=== PATIENT | female | born 1930 | race Caucasian/White ===

== ENCOUNTER → 2016-07-07 | Outpatient (CLI) | payer OTHER ==
[~2016-07-07] MED LIST: ASPI81TA82 PO; CALCTAB5 PO; CHOL1TAB2 PO; FERR325T5 PO; OMEP40CA PO
[2016-07-07 17:03] LABS: BASO % 0.7 %; BASO ABS # 0.06 K/uL (0-0.2); COMPLETE YES; EOS % 1.4 %; HEMATOCRIT 32.6 % (37-47); IG% 0.2 %; LYMPH % 19.1 %; LYMPH ABS # 1.55 K/uL (1.2-3.4); MEAN CELL VOLUME 79.1 fL (80-100); MEAN CORPUSCULAR HEMOGLOBIN 24.3 pg (25-34); MEAN CORPUSCULAR HGB CONC 30.7 g/dl (32-36); MEAN PLATELET VOLUME 9.9 fL (7.4-10.4); MONO % 12.3 %; NEUT % 66.3 %; PLATELET COUNT 369 K/uL (130-400); RED BLOOD COUNT 4.12 M/uL (4.2-5.4); WHITE BLOOD COUNT 8.11 K/uL (4.8-10.8)
[2016-07-07 17:11] LABS: ALT/SGPT 13 U/L (12-78); AST/SGOT 12 U/L (15-37); BLOOD UREA NITROGEN 14 mg/dl (7-18); CALCIUM 8.9 mg/dl (8.5-10.1); CARBON DIOXIDE 27 mmol/L (21-32); CHLORIDE 105 mmol/L (98-107); CREATININE 0.87 mg/dl (0.60-1.20); GLUCOSE 92 mg/dl (70-99); POTASSIUM 3.8 mmol/L (3.5-5.1); SODIUM 140 mmol/L (136-145)
[2016-07-07 17:22] LABS: ALKALINE PHOSPHATASE 124 U/L (45-117)
--- NOTE | 2016-07-14 11:37 | CODING QUERY MEDICAL NECESSITY ---
SUPPORTING DIAGNOSIS NEEDED Dr. Monge, A supporting diagnosis is required for the test/procedure performed on this patient in order for us to be reimbursed by the patient's insurance. Please provide a supporting diagnosis for the following test/procedure listed below next to the test name along with your signature. *If there is no additional diagnosis for this patient that would support the following test/procedure please document that below next to the test/procedure. Test(s)/Procedure(s) that require a supporting diagnosis: * ([id number]) B12 VITAMIN LEVEL DIAGNOSIS: DATE OF SERVICE: 07/07/16 Provider Signature: Date: Thank you Jani Arriaga [facility] Information Management Once completed, please kindly fax back to [phone] For questions please call [phone]
== END | disposition home or self-care (01) ==
LOC: C.LABBC 12:34
PROVIDERS: ATTEND Internal Medicine
DX: E55.9 Vitamin D deficiency, unspecified (principal)

== ENCOUNTER 2016-10-13 09:40 | Emergency (ER) | payer OTHER ==
[~2016-10-13] VITALS: Ht 160 cm; Wt 55.7 kg
[2016-10-13 09:47] VITALS: TEMP 36.8; Ht 160 cm; Wt 55.7 kg
--- NOTE | 2016-10-13 11:28 | DIAGNOSTIC IMAGING REPORT ---
LEFT RIBS UNILATERAL WITH PA CHEST CLINICAL HISTORY: fall, rib pain COMPARISON STUDY: Chest 04/06/2015. FINDINGS: No pneumothorax. No pleural effusions. The heart is normal in size. Mildly tortuous thoracic aorta, unchanged. Bibasilar interstitial thickening which is likely chronic. Question of subtle deformity within the left fourth through sixth lateral ribs. These may represent nondisplaced fractures. IMPRESSION: Possible left lateral fourth through sixth nondisplaced rib fractures. No pneumothorax. Electronically signed by: Gonzalez Bland M.D. 10/13/2016 11:27 AM Dictated Date/Time: 10/13/2016 11:23 AM
--- NOTE | 2016-10-13 12:11 | EMERGENCY ROOM VISIT NOTE ---
History Report prepared by Jaguar: Noemy Solitario Under the Supervision of: Dr. Parminder Gutierrez D.O. First contact with patient: 10:19 Chief Complaint: FALL Stated Complaint: ABD PAIN History of Present Illness The patient is an 85 year old female who presents to the Emergency Room with complaints of a sudden fall that occurred around 0845 this morning. She currently rates her discomfort as a 6/10 in severity. Per nursing staff, the patient had a ground level fall around 0845 this morning. Nursing staff reports that the patient has been complaining of left sided rib pain, but the patient has states that the pain started several days ago. Nursing staff reports that the patient has a history of severe dementia. The history is limited secondary to dementia. Source of History: patient, nursing staff History Limited By: dementia Onset: 0845 this morning Position: other (global) Symptom Intensity: 6/10 Quality: other (fall) Timing: other (sudden) Note: Associated Symptoms: left sided rib pain. Review of Systems The history and ROS are limited secondary to dementia. Past Medical & Surgical Medical Problems: (1) Hyperlipidemia Nec/Nos (2) Hypertension Nos (3) Osteoporosis Nos Family History Diabetes mellitus Social History Smoking Status: Former Smoker Drug Use: none Marital Status: Housing Status: lives alone Occupation Status: retired Current/Historical Medications Scheduled Calcium (Caltrate), 600 MG PO QAM Cholecalciferol (Vitamin D-3), 1,000 PO QAM Ferrous Sulfate (Ferrous Sulfate), 325 MG PO QAM Scheduled PRN Aspirin (Aspirin), 81-162 MG PO DAILY PRN for Pain Omeprazole (Prilosec), 40 MG PO QAM PRN for Indigestion Allergies Coded Allergies: Cephalosporins (Verified Allergy, Mild, UNKNOWN, 10/13/16) Cyclosporine (Verified Allergy, Mild, UNKNOWN, 10/13/16) Quinine Derivatives (Verified Allergy, Mild, UNKNOWN, 10/13/16) Codeine (Verified Allergy, Unknown, RASH, 10/13/16) Penicillins (Verified Allergy, Unknown, 10/13/16) Sulfa Drugs (Verified Allergy, Unknown, 10/13/16) Physical Exam Vital Signs Date Time Temp Pulse Resp B/P Pulse Ox O2 Delivery O2 Flow Rate FiO2 10/13/16 11:27 84 14 161/90 96 4/27/17 09:59 75 10/13/16 09:47 36.8 79 19 153/85 99 Room Air Physical Exam CONSTITUTIONAL/VITAL SIGNS: Reviewed / noted above. GENERAL: Non-toxic in appearance. INTEGUMENTARY: Warm, dry, and [place]. HEAD: Normocephalic. EYES: without scleral icterus or trauma. ENT/OROPHARYNX: clear and moist. LYMPHADENOPATHY/NECK: Is supple without lymphadenopathy or meningismus. CHEST: Mild tenderness to palpation of left lateral-mid thorax, no rashes, or obvious trauma, redness, or swelling. RESPIRATORY: Lungs clear and equal. CARDIOVASCULAR: Regular rate and rhythm. GI/ABDOMEN: Soft and nontender. No organomegaly or pulsatile mass. No rebound or guarding. Normal bowel sounds. EXTREMITIES: Warm and well perfused. BACK: No CVA tenderness. NEUROLOGICAL: Baseline confusion, history of dementia. PSYCHIATRIC: normal affect. MUSCULOSKELETAL: Normally developed with good muscle tone. Medical Decision & Procedures ER Provider Diagnostic Interpretation: X ray results and stated below per my interpretation and radiology interpretation. LEFT RIBS UNILATERAL WITH PA CHEST CLINICAL HISTORY: fall, rib pain COMPARISON STUDY: Chest 04/06/2015. FINDINGS: No pneumothorax. No pleural effusions. The heart is normal in size. Mildly tortuous thoracic aorta, unchanged. Bibasilar interstitial thickening which is likely chronic. Question of subtle deformity within the left fourth through sixth lateral ribs. These may represent nondisplaced fractures. IMPRESSION: Possible left lateral fourth through sixth nondisplaced rib fractures. No pneumothorax. Electronically signed by: Gonzalez Bland M.D. 10/13/2016 11:27 AM Dictated Date/Time: 10/13/2016 11:23 AM ED Course 1020: Previous medical records were reviewed. The patient was evaluated in room B7. A complete history and physical examination was performed. 1206: I reevaluated the patient and she is doing well. I discussed the exam findings with her and her family and I discussed the treatment plan. They verbalized complete understanding and agreement. The patient is ready to go home. Medical Decision Differential includes close head injury, intracranial bleed, facial trauma, cervical spine trauma, chest and thoracic trauma, abdominal and intra-abdominal trauma, spine neurologic trauma, extremity trauma. This is an 85-year-old female who presents to the ED with a chief complaint of left-sided rib pain. The patient fell earlier today. She is somewhat of a poor historian. Her vital signs are normal. Her physical exam reveals some tenderness to the left lateral mid thorax. There is no obvious crepitus. Lungs were clear. X-ray of the left ribs and chest reveal possible fractures 4 through 6. The patient was told the results. She is felt to be stable for discharge. She'll take Tylenol or Motrin. Impression Primary Impression: Fall Additional Impression: Ribs, multiple fractures Scribe Attestation The scribe's documentation has been prepared under my direction and personally reviewed by me in its entirety. I confirm that the note above accurately reflects all work, treatment, procedures, and medical decision making performed by me. Departure Information Dispostion Home / Self-Care Referrals Jose Miguel Monge M.D. (PCP) Forms HOME CARE DOCUMENTATION FORM, IMPORTANT VISIT INFORMATION Patient Instructions My [facility] Additional Instructions You have fractures of 3 left ribs. Take Tylenol or Motrin as needed for pain. Return for shortness of breath, fevers, cough or other concerns. Follow-up with your doctor for recheck next week. Problem Qualifiers
[2016-10-13 12:54] VITALS: BP 178/89; PULSE 61; O2SAT 96
== END 2016-10-13 13:00 | disposition home or self-care (01) ==
LOC: EDBD 09:40 → EDSEX 09:40 → C.EDB 09:46
DX: S22.42XA Multiple fractures of ribs, left side, initial encounter for closed fracture (principal); W19.XXXA Unspecified fall, initial encounter; Y92.129 Unspecified place in nursing home as the place of occurrence of the external cause; F03.90 Unspecified dementia, unspecified severity, without behavioral disturbance, psychotic disturbance, mood disturbance, and anxiety; I10 Essential (primary) hypertension; M81.0 Age-related osteoporosis without current pathological fracture; E78.5 Hyperlipidemia, unspecified; Z87.891 Personal history of nicotine dependence

== ENCOUNTER 2017-05-19 10:46 | Emergency (ER) | payer OTHER ==
[~2017-05-19] VITALS: Ht 152.4 cm; Wt 51.0 kg
[2017-05-19 10:51] VITALS: TEMP 36.7; Ht 152.4 cm; Wt 51.0 kg
--- NOTE | 2017-05-19 13:22 | DIAGNOSTIC IMAGING REPORT ---
ABDOMEN 2VIEW W/PA CHEST RTN CLINICAL HISTORY: eval for obstruction pain COMPARISON STUDY: 04/06/2015 FINDINGS: Fecal impaction. Nonobstructive bowel pattern. Calcifications overlying the right lower quadrant possibly relating to gallstones. No secondary signs for free air. Lungs are considered clear. Baseline emphysematous change. IMPRESSION: Fecal impaction The above report was generated using voice recognition software. It may contain grammatical, syntax or spelling errors. Electronically signed by: Angel Vela M.D. 05/19/2017 1:21 PM Dictated Date/Time: 05/19/2017 1:17 PM
[2017-05-19] MEDS ORDERED: MILK AND MOLASSES ENEMA PR STA (13:23)
[2017-05-19] MEDS ORDERED: [UNRECOGNIZED DRUG - OTHER] PR (14:59)
[2017-05-19 15:11] VITALS: BP 168/88; PULSE 65; O2SAT 100
--- NOTE | 2017-05-19 18:48 | EMERGENCY ROOM VISIT NOTE ---
History Report prepared by Jaguar: Rene Leija Under the Supervision of: Dr. Mateus Pagan M.D. First contact with patient: 12:26 Chief Complaint: CONSTIPATION Stated Complaint: CONSTIPATION, ABD PAIN Nursing Triage Summary: pt to ED with Son with c/o constipation and back pain for over a wk History of Present Illness The patient is a 86 year old female who presents to the Emergency Room with complaints of persistent constipation for the past four days. The patient denies any abdominal pain and back pain. Per the patient's son, Serafin, the patient has a history of dementia, and his only concern for her is that she has not had a bowel movement in 4 days. He does not have any other concerns for her other than that at this time. The history is limited secondary to dementia. Source of History: patient, family History Limited By: dementia Onset: 4 days ago Position: other (global) Quality: other (constipation) Timing: other (persistent) Associated Symptoms: No abdominal pain, No back pain Review of Systems Limited due to dementia. Past Medical & Surgical Medical Problems: (1) Hyperlipidemia Nec/Nos (2) Hypertension Nos (3) Osteoporosis Nos Family History Diabetes mellitus Social History Smoking Status: Never Smoker Drug Use: none Marital Status: Housing Status: lives alone Occupation Status: retired Current/Historical Medications Scheduled PRN Glycerin (Sani-Supp Adult), 1 SUPP [place] UD PRN for Constipation Allergies Coded Allergies: Cephalosporins (Verified Allergy, Mild, UNKNOWN, 05/19/17) Cyclosporine (Verified Allergy, Mild, UNKNOWN, 05/19/17) Quinine Derivatives (Verified Allergy, Mild, UNKNOWN, 05/19/17) Codeine (Verified Allergy, Unknown, RASH, 05/19/17) Penicillins (Verified Allergy, Unknown, 05/19/17) Sulfa Drugs (Verified Allergy, Unknown, 05/19/17) Physical Exam Vital Signs Date Time Temp Pulse Resp B/P (MAP) Pulse Ox O2 Delivery O2 Flow Rate FiO2 05/19/17 15:11 65 18 168/88 100 05/19/17 10:51 36.7 97 16 128/77 97 Room Air Physical Exam Constitutional: Vital signs reviewed. Eyes: Pupils are equal round reactive to light. Conjunctiva are noninjected. ENT: Pharynx is clear without erythema or exudate. Mucous membranes are moist. Neck supple without meningeal signs. Respiratory: Clear to auscultation bilaterally. Breath sounds are equal bilaterally. Cardiovascular: Regular rate and rhythm. No rubs or gallops. GI: Soft, nondistended and nontender. Bowel sounds are present. Musculoskeletal: No CVA tenderness. No midline tenderness to the thoracic or lumbosacral spine. No peripheral edema. No lower extremity tenderness. Integumentary: No cyanosis. Neurological: The patient is awake and alert. Pleasant. Psychiatric: Normal affect. Medical Decision & Procedures ER Provider Diagnostic Interpretation: Radiology results as stated below per my review and the radiologist's interpretation: ABDOMEN 2VIEW W/PA CHEST RTN CLINICAL HISTORY: eval for obstruction pain COMPARISON STUDY: 04/06/2015 FINDINGS: Fecal impaction. Nonobstructive bowel pattern. Calcifications overlying the right lower quadrant possibly relating to gallstones. No secondary signs for free air. Lungs are considered clear. Baseline emphysematous change. IMPRESSION: Fecal impaction The above report was generated using voice recognition software. It may contain grammatical, syntax or spelling errors. Electronically signed by: Angel Vela M.D. 05/19/2017 1:21 PM Dictated Date/Time: 05/19/2017 1:17 PM Medications Administered Medications (Trade) Dose Ordered Sig/Jas Route Start Time Stop Time Status Last Admin Dose Admin Miscellaneous Medication (Milk And Molasses Enema) 1 ea NOW STAT [place] 05/19/17 13:23 05/19/17 13:24 DC 05/19/17 14:05 1 EA Procedure Fecal Disimpaction Patient was laying right lateral decubitus with her knees to her chest. Copious lubricant was utilized. A nursing aid was there to comfort her. I removed a moderate amount of stool with one finger. ED Course 1226: The patient was evaluated in room C8. A complete history and physical exam was performed. 1323: Milk and Molasses Enema [place] 1340: I reevaluated the patient, and I let her know her diagnoses and that she will be getting an enema. 1439: The patient was uncooperative with her enemas. 1442: The patient had difficulty cooperating with the enema, and she did not understand the situation and immediately expelled the enema each time. I did have to manually disimpact a moderate amount of stool. She became upset and frantic, so I discontinued any further attempts. I discussed what happened with the son, and he is going to pick her up. Medical Decision This is an 86-year-old female presents with decreased bowel movements. Differential diagnosis includes constipation, obstipation, fecal impaction, bowel obstruction. I did perform a limited focused review of portions of the patient's old chart on the electronic medical record. The patient has had no recent pertinent visits to this hospital. I did evaluate the patient as noted above. I did obtain history from the patient as well as her son over the telephone. The patient is severely demented. She does not know why she is here. She has no complaints at this time. She denies any abdominal pain or back pain. She is not nauseated. I did speak to her son Serafin over the telephone who stated that she has not had a bowel movement at approximate 4-5 days. He did not have any other concerns regarding her health at this time. I did order and personally review the patient 's abdominal and chest x-rays as described above. The patient has a fecal impaction. There is no evidence of bowel obstruction. I did order a milk and molasses enema. The patient had difficulty with this. She did not understand the process and would not hold the enema and for any significant amount of time. I therefore had to perform manual disimpaction as described above. I was able to remove a moderate amount of feces but the patient became highly agitated and so I did have to stop. I did discuss her care with her son over the telephone. I did prescribe glycerin suppositories. He does understand that she may require reassessment should she not have a bowel movement at home. The patient was discharged with her son in good condition. Medication Reconcilliation Current Medication List: was personally reviewed by me Blood Pressure Screening Patient's blood pressure: Normal blood pressure Impression Primary Impression: Fecal impaction Scribe Attestation The scribe's documentation has been prepared under my direct and personally reviewed by me in its entirety. I confirm that the note above accurately reflects all work, treatment, procedures, and medical decision making performed by me. Departure Information Dispostion Home / Self-Care Prescriptions Glycerin (Sani-Supp Adult) 1 Ea Supp 1 SUPP [place] UD Y for Constipation, #30 SUPP Prov: Mateus Pagan M.D. 05/19/17 Referrals Jose Miguel Monge M.D. (PCP) Forms HOME CARE DOCUMENTATION FORM, IMPORTANT VISIT INFORMATION Patient Instructions ED Impaction Fecal Treated, My [facility] Additional Instructions You have been examined and treated today on an emergency basis only. This is not a substitute for, or an effort to provide, complete comprehensive medical care. It is impossible to recognize and treat all injuries or illnesses in a single emergency department visit. It is therefore important that you follow up closely with your physician. Call as soon as possible for an appointment. Return for worsening symptoms or if you develop fever, vomiting, abdominal pain or any other concerning symptoms.
== END 2017-05-19 15:30 | disposition home or self-care (01) ==
LOC: C.EDB 10:47 → C.EDC 15:30
DX: K56.41 Fecal impaction (principal); E78.5 Hyperlipidemia, unspecified; I10 Essential (primary) hypertension; M81.0 Age-related osteoporosis without current pathological fracture; Z83.3 Family history of diabetes mellitus; F03.90 Unspecified dementia, unspecified severity, without behavioral disturbance, psychotic disturbance, mood disturbance, and anxiety

== ENCOUNTER 2017-08-04 06:56 | Emergency (ER) | payer OTHER ==
[~2017-08-04 06:56] MED LIST changes: -ASPI81TA82 PO; -CALCTAB5 PO; -CHOL1TAB2 PO; -FERR325T5 PO; -OMEP40CA PO; +[UNRECOGNIZED DRUG - OTHER] PR
[2017-08-04 07:05] VITALS: TEMP 37.1
--- NOTE | 2017-08-04 07:38 | EMERGENCY ROOM VISIT NOTE ---
History Report prepared by [facility]: Cata Austin Under the Supervision of: Dr. Parminder López M.D. First contact with patient: 07:03 Chief Complaint: FALL Stated Complaint: FALL/LACERATION History of Present Illness The patient is a 86 year old female who presents to the Emergency Room with complaints of persistent trauma secondary to a fall that occurred about one hour prior to arrival. The patient's son states that he heard his mother calling out for help, noting she had fallen out of bed but they were unaware of how long she had been laying on the floor for. The patient had a laceration on her forehead and is unaware if she hit any other body parts during her fall or if she lost consciousness. He notes he had last seen her before they both went to bed. According to the nursing staff, the patient is only oriented to self. HPI limited due to patient having a history of dementia. Source of History: patient History Limited By: dementia Onset: one hour prior to arrival Position: other (global) Quality: other (trauma secondary to fall) Timing: other (persistent) Note: Associated symptoms include: forehead laceration. Review of Systems See HPI for pertinent positives & negatives. A total of 10 systems reviewed and were otherwise negative. Past Medical & Surgical Medical Problems: (1) Hyperlipidemia Nec/Nos (2) Hypertension Nos (3) Osteoporosis Nos Family History Diabetes mellitus Social History Smoking Status: Never Smoker Drug Use: none Marital Status: Housing Status: lives alone Occupation Status: retired Current/Historical Medications Scheduled PRN Glycerin (Sani-Supp Adult), 1 SUPP MO UD PRN for Constipation Allergies Coded Allergies: Cephalosporins (Verified Allergy, Mild, UNKNOWN, 05/19/17) Cyclosporine (Verified Allergy, Mild, UNKNOWN, 05/19/17) Quinine Derivatives (Verified Allergy, Mild, UNKNOWN, 05/19/17) Codeine (Verified Allergy, Unknown, RASH, 05/19/17) Penicillins (Verified Allergy, Unknown, 05/19/17) Sulfa Drugs (Verified Allergy, Unknown, 05/19/17) Physical Exam Vital Signs Date Time Temp Pulse Resp B/P (MAP) Pulse Ox O2 Delivery O2 Flow Rate FiO2 08/04/17 11:35 84 20 160/97 99 08/04/17 09:44 78 170/82 98 Room Air 08/04/17 08:39 83 08/04/17 08:37 99 Room Air 08/04/17 08:37 100 Room Air 08/04/17 08:37 80 17 154/78 100 Room Air 08/04/17 07:05 37.1 96 18 161/93 98 Room Air Physical Exam GENERAL: Patient is a healthy-appearing well-nourished female. HEAD: Quarter size contusion to forehead, superficial laceration. EYES: Ocular movements intact pupils equal and react to light OROPHARYNX mucous membranes are moist no exudates present no erythema or edema present NECK: Supple no nuchal rigidity CHEST: Good equal expansion LUNGS: Clear and equal to auscultation CARDIAC: Normal S1 and S2 ABDOMEN: Soft nontender no guarding BACK: No midline tenderness to back. EXTREMITIES: Good range of motion to all extremities. No pain upon palpation normal muscle strength in all groups no clubbing cyanosis or edema NEURO: Patient is following commands and answering questions appropriately. Alert and oriented x3 Cranial Nerves 2-12 grossly intact Medical Decision & Procedures ER Provider Diagnostic Interpretation: Radiology results as stated below per my review and radiologist interpretation: L RIBS UNILATERAL MIN 2 VIEWS CLINICAL HISTORY: 86 years-old Female presenting with Pt left rib pain . TECHNIQUE: Frontal and oblique views of the left ribs were obtained. COMPARISON: Chest x-ray performed earlier the same day. FINDINGS: Osteopenia, which limits evaluation for nondisplaced fracture. Minimal cortical deformities of the posterior left sixth and seventh ribs, which are somewhat age indeterminate. There is suggestion of periosteal reaction, which suggest chronicity, though the degree of osteopenia makes evaluation difficult. Degenerative changes in the lumbar spine. Atherosclerosis. IMPRESSION: 1. Minimally displaced posterior left sixth and seventh rib fractures. These are age-indeterminate as the degree of osteopenia makes evaluation for periosteal reaction difficult. Correlate with point tenderness. Electronically signed by: Jose Miguel Mixon M.D. 08/04/2017 9:28 AM Dictated Date/Time: 08/04/2017 9:26 AM CHEST ONE VIEW PORTABLE CLINICAL HISTORY: 86 years-old Female presenting with Pt c/o fall. TECHNIQUE: Portable upright AP view of the chest was obtained. COMPARISON: 05/19/2017. FINDINGS: Atherosclerosis of the aortic arch. Cardiac silhouette normal in size. Calcified granuloma noted at the right lung base. No new focal infiltrate. No large effusion or pneumothorax. Osteopenia may be present. Possible chronic posterior left rib fractures at the left sixth and seventh ribs, the appearance may be unchanged from prior. Upper abdomen normal. IMPRESSION: 1. No acute cardiopulmonary disease. 2. Possible posterior rib fractures of the left sixth and seventh ribs, which may be chronic. Dedicated rib radiographs could be considered as clinically indicated. Electronically signed by: Jose Miguel Mixon M.D. 08/04/2017 8:29 AM Dictated Date/Time: 08/04/2017 8:27 AM PELVIS 1 OR 2 VIEW ROUTINE CLINICAL HISTORY: 86 years-old Female presenting with Pt c/o fall. TECHNIQUE: Single frontal view the pelvis was obtained. COMPARISON: None. FINDINGS: Osteopenia may be present. Sacroiliac joints, pubic symphysis, and hip joints congruent. No acute fracture or malalignment. Degenerative changes of the lower lumbar spine noted. Arcuate lines intact. IMPRESSION: No acute osseous injury of the pelvis. Electronically signed by: Jose Miguel Mixon M.D. 08/04/2017 8:27 AM Dictated Date/Time: 08/04/2017 8:25 AM HEAD WITHOUT CONTRAST (CT) CLINICAL HISTORY: 86 years-old Female with Pt c/o fall, hit head. Acute head injury status post fall TECHNIQUE: Multiple axial CT images of the head were obtained without contrast. A dose lowering technique was utilized adhering to the principles of ALARA. CT DOSE: 614.27 mGy.cm COMPARISON: CT head 04/06/2015. FINDINGS: No acute intracranial hemorrhage, midline shift, intracranial mass, hydrocephalus, territorial ischemia or abnormal extra-axial collection. Mild to moderate atrophy with ex vacuo ventriculomegaly. Ill-defined areas of low-attenuation are again seen within the subcortical and periventricular white matter compatible with chronic microvascular ischemic changes. Asymmetric prominence of the left temporal horn lateral ventricle appears unchanged. Vascular calcifications are seen at the level of the skull base. The calvarium is intact. The mastoid air cells, and middle ear cavities are clear. Mild mucosal thickening of the ethmoid air cells and right maxillary sinus. Right-sided ilan bullosa. Small right frontal scalp hematoma, 2.1 x 0.3 cm. IMPRESSION: 1. Chronic changes without acute intracranial abnormality identified. 2. Small right frontal scalp hematoma without calvarial fracture. The above report was generated using voice recognition software. It may contain grammatical, syntax or spelling errors. Electronically signed by: Adalid Mcintyre M.D. 08/04/2017 8:10 AM Dictated Date/Time: 08/04/2017 8:03 AM Laboratory Results 08/04/17 07:45 Red Blood Count 3.89, Mean Corpuscular Volume 68.9, Mean Corpuscular Hemoglobin 20.6, Mean Corpuscular Hemoglobin Concent 29.9, Mean Platelet Volume 8.3, Neutrophils (%) (Auto) 69.0, Lymphocytes (%) (Auto) 16.4, Monocytes (%) (Auto) 12.1, Eosinophils (%) (Auto) 1.5, Basophils (%) (Auto) 0.7, Neutrophils # (Auto ) 4.12, Lymphocytes # (Auto) 0.98, Monocytes # (Auto) 0.72, Eosinophils # (Auto ) 0.09, Basophils # (Auto) 0.04 08/04/17 07:45 Test 08/04/17 07:40 08/04/17 07:45 08/04/17 09:40 Bedside Glucose 92 mg/dl (70-90) White Blood Count 5.97 K/uL (4.8-10.8) Red Blood Count 3.89 M/uL (4.2-5.4) Hemoglobin 8.0 g/dL (12.0-16.0) Hematocrit 26.8 % (37-47) Mean Corpuscular Volume 68.9 fL (80-100) Mean Corpuscular Hemoglobin 20.6 pg (25-34) Mean Corpuscular Hemoglobin Concent 29.9 g/dl (32-36) Platelet Count 335 K/uL (130-400) Mean Platelet Volume 8.3 fL (7.4-10.4) Neutrophils (%) (Auto) 69.0 % Lymphocytes (%) (Auto) 16.4 % Monocytes (%) (Auto) 12.1 % Eosinophils (%) (Auto) 1.5 % Basophils (%) (Auto) 0.7 % Neutrophils # (Auto) 4.12 K/uL (1.4-6.5) Lymphocytes # (Auto) 0.98 K/uL (1.2-3.4) Monocytes # (Auto) 0.72 K/uL (0.11-0.59) Eosinophils # (Auto) 0.09 K/uL (0-0.5) Basophils # (Auto) 0.04 K/uL (0-0.2) RDW Standard Deviation 40.6 fL (36.4-46.3) RDW Coefficient of Variation 16.3 % (11.5-14.5) Immature Granulocyte % (Auto) 0.3 % Immature Granulocyte # (Auto) 0.02 K/uL (0.00-0.02) Hypochromasia PRESENT Microcytosis PRESENT Ovalocytes 1+ Prothrombin Time 10.0 SECONDS (9.0-12.0) Prothromb Time International Ratio 1.0 (0.9-1.1) Anion Gap 8.0 mmol/L (3-11) Estimated GFR () 90.1 Estimated GFR (Non- 77.7 BUN/Creatinine Ratio 16.6 (10-20) Calcium Level 8.7 mg/dl (8.5-10.1) Total Bilirubin 0.4 mg/dl (0.2-1) Direct Bilirubin < 0.1 mg/dl (0-0.2) Aspartate Amino Transf (AST/SGOT) 14 U/L (15-37) Alanine Aminotransferase (ALT/SGPT) 13 U/L (12-78) Alkaline Phosphatase 118 U/L (45-117) Total Creatine Kinase 71 U/L (26-192) Creatine Kinase MB 1.6 ng/ml (0.5-3.6) Creatine Kinase MB Ratio 2.3 (0-3.0) Troponin I < 0.015 ng/ml (0-0.045) Total Protein 7.2 gm/dl (6.4-8.2) Albumin 3.2 gm/dl (3.4-5.0) Thyroid Stimulating Hormone (TSH) 2.360 uIu/ml (0.300-4.500) Urine Color YELLOW Urine Appearance CLEAR (CLEAR) Urine pH 7.5 (4.5-7.5) Urine Specific [place] 1.009 (1.000-1.030) Urine Protein NEG (NEG) Urine Glucose (UA) NEG (NEG) Urine Ketones NEG (NEG) Urine Occult Blood NEG (NEG) Urine Nitrite POS (NEG) Urine Bilirubin NEG (NEG) Urine Urobilinogen NEG (NEG) Urine Leukocyte Esterase TRACE (NEG) Urine WBC (Auto) 1-5 /hpf (0-5) Urine RBC (Auto) 0-4 /hpf (0-4) Urine Hyaline Casts (Auto) 0 /lpf (0-5) Urine Epithelial Cells (Auto) 10-20 /lpf (0-5) Urine Bacteria (Auto) 4+ (NEG) Labs reviewed by ED physician. Procedure Location: right forehead Total length: 1cm Complexity: simple linear Verbal consent was obtained after the risks and benefits were explained, including but not limited to bleeding, scarring, infection, pain, and bone/joint /nerve damage. At this time, the risks of the procedure are less than the risks of NOT performing the procedure. A time out was taken and the correct patient and site identified. The skin was prepped with betadine. Copious irrigation was performed using 5cc of fluid. The skin was re-prepped with betadine and a sterile field set. The wound was explored for foreign bodies and none found. Examination revealed no injury to deep structures such as tendons, bone, or significant blood vessels. Debridement was not performed. The wound edges were approximated using Dermabond. Hemostasis and excellent approximation was achieved. Antibacterial ointment and a sterile dressing applied. Detailed wound care instructions and signs and symptoms of infection reviewed with the patient. No complications and the patient tolerated the procedure well. ECG Per My Interpretation Indication: weakness Rate (beats per minute): 95 Rhythm: normal sinus Findings: other (normal axis, no ST elevations or depressions) Change: Patients electrocardiogram as interpreted by me. ED Course 0722: Past medical records reviewed. The patient was evaluated in room A10. A complete history and physical examination was performed. Laceration repair procedure performed with patient's verbal approval. 1009: I had a long talk with the patient's son , who states that the patient is anemic and has not been taking her medication at home. We discussed test findings and the treatment plan, he verbalized complete understanding and agreement. He feels comfortable taking her home. The patient is ready for discharge. Medical Decision Differential diagnosis: Etiologies such as fracture, dislocation, intra-abdominal, pneumothorax, intrathoracic , intracranial, neurologic, as well as other traumatic pathologies were entertained. This is an 86-year-old female who presents emergency department complaining of fall at home this morning. The patient has dementia and per her son is at her baseline. She has a laceration to her right for head which was closed as above. I will note that the patient is slightly anemic with a hemoglobin of 8.0. For this reason a rectal exam was obtained. She is heme negative. I discussed my findings with the son who notes that the patient as well as to be taking iron but has not taken it in quite some time. As the patient is at her baseline and has been standing up and walking around while in the emergency department I feel that she is well enough to be discharged home however she needs close follow-up with her primary care physician. I also offered home health services or longterm placement to the son however he declined them. He also feels the patient as well as to be taken home. I stressed the need to return if the patient develops weakness or altered mental status. Some was in agreement with the treatment plan. Medication Reconcilliation Current Medication List: was personally reviewed by me Blood Pressure Screening Patient's blood pressure: Elevated blood pressure Blood pressure disposition: Referred to PCP Impression Primary Impression: Fall Additional Impressions: Laceration Head injury Scribe Attestation The scribe's documentation has been prepared under my direction and personally reviewed by me in its entirety. I confirm that the note above accurately reflects all work, treatment, procedures, and medical decision making performed by me. Departure Information Dispostion Home / Self-Care Referrals Jose Miguel Tong M.D. (PCP) Forms HOME CARE DOCUMENTATION FORM, IMPORTANT VISIT INFORMATION Patient Instructions My [facility] Additional Instructions Follow up with Dr Tong's office for anemia Return if patient is weak or bleeding You have been examined and treated today on an emergency basis only. This is not a substitute for, or an effort to provide, complete comprehensive medical care. It is impossible to recognize and treat all injuries or illnesses in a single emergency department visit. It is therefore important that you follow up closely with Dr Tong. Call as soon as possible for an appointment. Thank you for your time and consideration. I look forward to speaking with you again soon. Please don't hesitate to call us if you have any questions. Problem Qualifiers Primary Impression: Fall Encounter type: initial encounter Qualified Codes: W19.XXXA - Unspecified fall, initial encounter Additional Impressions: Head injury Encounter type: initial encounter Qualified Codes: S09.90XA - Unspecified injury of head, initial encounter
[2017-08-04 07:55] LABS: BASO % 0.7 %; BASO ABS # 0.04 K/uL (0-0.2); EOS % 1.5 %; EOS ABS # 0.09 K/uL (0-0.5); HEMATOCRIT 26.8 % (37-47); IG# 0.02 K/uL (0.00-0.02); LYMPH % 16.4 %; LYMPH ABS # 0.98 K/uL (1.2-3.4); MEAN CELL VOLUME 68.9 fL (80-100); MEAN CORPUSCULAR HEMOGLOBIN 20.6 pg (25-34); MEAN CORPUSCULAR HGB CONC 29.9 g/dl (32-36); MEAN PLATELET VOLUME 8.3 fL (7.4-10.4); MONO % 12.1 %; MONO ABS # 0.72 K/uL (0.11-0.59); NEUT ABS # 4.12 K/uL (1.4-6.5); PLATELET COUNT 335 K/uL (130-400); RED CELL DISTRIBUTION WIDTH CV 16.3 % (11.5-14.5); RED CELL DISTRIBUTION WIDTH SD 40.6 fL (36.4-46.3); WHITE BLOOD COUNT 5.97 K/uL (4.8-10.8)
[2017-08-04 08:10] LABS: ALBUMIN 3.2 gm/dl (3.4-5.0); ALT/SGPT 13 U/L (12-78); AST/SGOT 14 U/L (15-37); BLOOD UREA NITROGEN 11 mg/dl (7-18); CALCIUM 8.7 mg/dl (8.5-10.1); CARBON DIOXIDE 27 mmol/L (21-32); CREATININE 0.69 mg/dl (0.60-1.20); GLUCOSE 91 mg/dl (70-99); POTASSIUM 3.3 mmol/L (3.5-5.1); SODIUM 139 mmol/L (136-145)
--- NOTE | 2017-08-04 08:11 | DIAGNOSTIC IMAGING REPORT ---
HEAD WITHOUT CONTRAST (CT) CLINICAL HISTORY: 86 years-old Female with Pt c/o fall, hit head. Acute head injury status post fall TECHNIQUE: Multiple axial CT images of the head were obtained without contrast. A dose lowering technique was utilized adhering to the principles of ALARA. CT DOSE: 614.27 mGy.cm COMPARISON: CT head 04/06/2015. FINDINGS: No acute intracranial hemorrhage, midline shift, intracranial mass, hydrocephalus, territorial ischemia or abnormal extra-axial collection. Mild to moderate atrophy with ex vacuo ventriculomegaly. Ill-defined areas of low-attenuation are again seen within the subcortical and periventricular white matter compatible with chronic microvascular ischemic changes. Asymmetric prominence of the left temporal horn lateral ventricle appears unchanged. Vascular calcifications are seen at the level of the skull base. The calvarium is intact. The mastoid air cells, and middle ear cavities are clear. Mild mucosal thickening of the ethmoid air cells and right maxillary sinus. Right-sided ilan bullosa. Small right frontal scalp hematoma, 2.1 x 0.3 cm. IMPRESSION: 1. Chronic changes without acute intracranial abnormality identified. 2. Small right frontal scalp hematoma without calvarial fracture. The above report was generated using voice recognition software. It may contain grammatical, syntax or spelling errors. Electronically signed by: Adalid Mcintyre M.D. 08/04/2017 8:10 AM Dictated Date/Time: 08/04/2017 8:03 AM
[2017-08-04 08:20] LABS: ALKALINE PHOSPHATASE 118 U/L (45-117); CKMB 1.6 ng/ml (0.5-3.6); TOTAL PROTEIN 7.2 gm/dl (6.4-8.2)
--- NOTE | 2017-08-04 08:28 | DIAGNOSTIC IMAGING REPORT ---
PELVIS 1 OR 2 VIEW ROUTINE CLINICAL HISTORY: 86 years-old Female presenting with Pt c/o fall. TECHNIQUE: Single frontal view the pelvis was obtained. COMPARISON: None. FINDINGS: Osteopenia may be present. Sacroiliac joints, pubic symphysis, and hip joints congruent. No acute fracture or malalignment. Degenerative changes of the lower lumbar spine noted. Arcuate lines intact. IMPRESSION: No acute osseous injury of the pelvis. Electronically signed by: Jose Miguel Mixon M.D. 08/04/2017 8:27 AM Dictated Date/Time: 08/04/2017 8:25 AM
--- NOTE | 2017-08-04 08:30 | DIAGNOSTIC IMAGING REPORT ---
CHEST ONE VIEW PORTABLE CLINICAL HISTORY: 86 years-old Female presenting with Pt c/o fall. TECHNIQUE: Portable upright AP view of the chest was obtained. COMPARISON: 05/19/2017. FINDINGS: Atherosclerosis of the aortic arch. Cardiac silhouette normal in size. Calcified granuloma noted at the right lung base. No new focal infiltrate. No large effusion or pneumothorax. Osteopenia may be present. Possible chronic posterior left rib fractures at the left sixth and seventh ribs, the appearance may be unchanged from prior. Upper abdomen normal. IMPRESSION: 1. No acute cardiopulmonary disease. 2. Possible posterior rib fractures of the left sixth and seventh ribs, which may be chronic. Dedicated rib radiographs could be considered as clinically indicated. Electronically signed by: Jose Miguel Mixon M.D. 08/04/2017 8:29 AM Dictated Date/Time: 08/04/2017 8:27 AM
[2017-08-04 08:37] VITALS: O2SAT 100
--- NOTE | 2017-08-04 09:29 | DIAGNOSTIC IMAGING REPORT ---
L RIBS UNILATERAL MIN 2 VIEWS CLINICAL HISTORY: 86 years-old Female presenting with Pt left rib pain . TECHNIQUE: Frontal and oblique views of the left ribs were obtained. COMPARISON: Chest x-ray performed earlier the same day. FINDINGS: Osteopenia, which limits evaluation for nondisplaced fracture. Minimal cortical deformities of the posterior left sixth and seventh ribs, which are somewhat age indeterminate. There is suggestion of periosteal reaction, which suggest chronicity, though the degree of osteopenia makes evaluation difficult. Degenerative changes in the lumbar spine. Atherosclerosis. IMPRESSION: 1. Minimally displaced posterior left sixth and seventh rib fractures. These are age-indeterminate as the degree of osteopenia makes evaluation for periosteal reaction difficult. Correlate with point tenderness. Electronically signed by: Jose Miguel Mixon M.D. 08/04/2017 9:28 AM Dictated Date/Time: 08/04/2017 9:26 AM
[2017-08-04 11:35] VITALS: BP 160/97; PULSE 84; O2SAT 99
== END 2017-08-04 11:36 | disposition home or self-care (01) ==
LOC: EDBD 06:56 → C.EDA 07:01
DX: S01.81XA Laceration without foreign body of other part of head, initial encounter (principal); S09.90XA Unspecified injury of head, initial encounter; W06.XXXA Fall from bed, initial encounter; Y92.003 Bedroom of unspecified non-institutional (private) residence as the place of occurrence of the external cause; Y93.84 Activity, sleeping; D64.9 Anemia, unspecified; F03.90 Unspecified dementia, unspecified severity, without behavioral disturbance, psychotic disturbance, mood disturbance, and anxiety; E78.5 Hyperlipidemia, unspecified; I10 Essential (primary) hypertension; M81.0 Age-related osteoporosis without current pathological fracture; Z83.3 Family history of diabetes mellitus; Z88.0 Allergy status to penicillin; Z88.8 Allergy status to other drugs, medicaments and biological substances; Z88.3 Allergy status to other anti-infective agents; Z88.5 Allergy status to narcotic agent

== ENCOUNTER → 2017-09-26 | Outpatient (CLI) | payer OTHER ==
--- NOTE | 2017-09-26 14:38 | DIAGNOSTIC IMAGING REPORT ---
L VENOUS DOPP LOWER EXT UNILAT CLINICAL HISTORY: 86 years-old Female presenting with 782.3,R60.0. TECHNIQUE: Real-time grayscale and color and spectral Doppler ultrasound imaging of the veins of the left lower extremity was performed. Compression and augmentation were also utilized. COMPARISON: None. FINDINGS: Left: Common femoral vein: Patent. Greater saphenous vein: Patent. Deep femoral vein: Patent. Femoral vein: Patent. Popliteal vein: Patent. Calf veins: Limited visualization secondary to subcutaneous edema. Other: None. IMPRESSION: No evidence of deep venous thrombosis. Electronically signed by: Jose Miguel Mixon M.D. 09/26/2017 2:37 PM Dictated Date/Time: 09/26/2017 2:36 PM
== END | disposition home or self-care (01) ==
LOC: C.ULTRBC 14:03
PROVIDERS: ATTEND Internal Medicine
DX: R60.0 Localized edema (principal)

== ENCOUNTER 2018-10-07 10:22 | Inpatient (IN) ==
[2018-10-07] MEDS ORDERED: SODIUM CHLORIDE 0.9% 1000ML 1,000 ML IV SCH (10:45)
[2018-10-07] MEDS ORDERED: SODIUM CHLORIDE 0.9% 500 ML IV SCH (10:45)
--- NOTE | 2018-10-07 10:54 | XRay Report ---
XR chest 1V portable HISTORY: weakness COMPARISON: Chest 08/04/2017. FINDINGS: The lungs are clear. Cardiac silhouette is normal in size. No pleural effusions. No pneumot horax. IMPRESSION: No acute process. Electronically signed by: Gonzalez Bland M.D. 10/07/2018 10:53 AM
[2018-10-07 11:31] LABS: Hematocrit (blood only) 21.9 % (37-47); Mean Corpuscular Hgb Conc 27.4 g/dL (32-36); Mean Corpuscular Volume 61.3 fL (80-100); Mean Platelet Volume 8.3 fL (7.4-10.4); Platelet Count 346 K/uL (130-400); RDW Coefficient of Variation 18.7 % (11.5-14.5); RDW Standard Deviation 42.4 fL (36.4-46.3); Red Blood Count 3.57 M/uL (4.2-5.4); White Blood Count 4.64 K/uL (4.8-10.8)
[2018-10-07 11:39] LABS: Alanine Aminotransferase 12 U/L (12-78); Albumin Level 3.3 gm/dl (3.4-5.0); Aspartate Aminotransferase 12 U/L (15-37); BUN Creatinine Ratio 15.9 (10-20); Blood Urea Nitrogen 15 mg/dl (7-18); Calcium 8.7 mg/dl (8.5-10.1); Carbon Dioxide 26 mmol/L (21-32); Chloride 106 mmol/L (98-107); Est GFR (African American) 62.3; Est GFR (Non-African American) 53.8; Glucose 105 mg/dl (70-99); Magnesium 2.4 mg/dl (1.8-2.4); Potassium 4.2 mmol/L (3.5-5.1); Sodium 139 mmol/L (136-145)
[2018-10-07 11:45] LABS: Basophils # (auto) 0.06 K/uL (0-0.2); Basophils % (auto) 1.3 %; Eosinophils # (auto) 0.06 K/uL (0-0.5); Eosinophils % (auto) 1.3 %; Hypochromasia Present; Immature Granulocytes # (auto) 0.01 K/uL (0.00-0.02); Immature Granulocytes % (auto) 0.2 %; Lymphocytes # (auto) 1.46 K/uL (1.2-3.4); Lymphocytes % (auto) 31.5 %; Microcytosis Present; Monocytes # (auto) 0.63 K/uL (0.11-0.59); Monocytes % (auto) 13.6 %; Neutrophils # (auto) 2.42 K/uL (1.4-6.5); Neutrophils % (auto) 52.1 %; Ovalocytes 1+; Poikilocytosis Present
[2018-10-07 11:50] LABS: Albumin Globulin Ratio 0.9 (0.9-2); Alkaline Phosphatase 85 U/L (45-117); Bilirubin,Total 0.3 mg/dl (0.2-1); Globulin 3.7 gm/dl (2.5-4.0); Troponin I < 0.015 ng/ml (0-0.045)
[2018-10-07 12:03] LABS: Reticulocyte % 1.1 % (0.5-2.0); Reticulocytes # 0.04 10^6/uL (0.02-0.10)
--- NOTE | 2018-10-07 12:28 | History & Physical Report ---
Date of Service October 07, 2018 Assessment & Plan (1) Severe anemia: Presyncope 87 yo female with advanced dementia likely due to severe anemia. Patient is admitted with hemoglobin of 6.0 Will obtain iron studies. It appears patient likely has a lower GI bleed. Will consult GI. NPO. On PPI. Transfuse 2 PRBC. Son states patient will be a level 5 Do not resuscitate. Will recheck hemoglobin in AM. (2) Dementia: Patient has advanced dementia. May require a one to one as patient was trying to leave room when I was assessing her.Informed nursing staff. (3) Near syncope: Due to problem one. Will monitor. DVT: SCD was considered, but patient refusing this. Will have patient ambulate with aid. SPENT 65 MINUTES IN MANAGEMENT OF PATIENT. History of Present Illness Chief Complaint: [place] weak and almost passed out in restoration. Primary Care Provider: Baldemar Luo at [place] 87 yo female with no significant medical history except for advanced dementia. Patient is a poor historian and most of the history was obtained by her son via phone. Her son states that the patient is a resident of [facility]. She was her normal self this morning when Jose her son picked her up at [facility]. But at restoration, while she was sitting during the sermon. Her son noticed that her head went down but she was arousable. He had to get a wheelchair to get her to the car. Normally she ambulated with no issues. In the car, she was leaning forward with her head down, but she did not lose consciousness. Patient' son states that he could not provide more history as she is now a resident at [facility]. Called Baldemar, they stated she was her normal self but did have abdominal pain on , but this subsided Monday. As patient toilets herself, they cannot provide any history of her stools. Allergies Allergy/AdvReac Type Severity Reaction Status Date / Time Cephalosporins Allergy Mild UNKNOWN Verified 10/07/18 11:32 cyclosporine Allergy Mild UNKNOWN Verified 10/07/18 11:32 quinine Allergy Mild UNKNOWN Verified 10/07/18 11:32 codeine Allergy Unknown RASH Verified 10/07/18 11:32 Penicillins Allergy Unknown Verified 10/07/18 11:32 Sulfa (Sulfonamide Allergy Unknown Verified 10/07/18 11:32 Antibiotics) Home Medications Home Medications Medication Instructions Recorded Confirmed Type acetaminophen 500 mg PO TID PRN 10/07/18 10/07/18 History Past Med/Surg History Medical History Dementia Hyperlipidemia Hypertension Iron deficiency anemia due to chronic blood loss Osteoarthritis Surgical History History of appendectomy History of cataract surgery History of colonoscopy History of ovarian cystectomy History of tonsillectomy Family History Mother , Age 77 No problems noted. Social History Preferred Language: Haitian Communication Ability: Impaired Communication Ability Comment: advanced dementia Aviation Maintenance Technician Required: Yes Beliefs That Will Affect Care: None Current Living Situation: Snf Current Living Situation Comment: baldemar Last 2 Leftgabriel Other Information That Helps Us Care for You: No Feels Safe at Home: Yes Safety Concerns: Feels Safe At This Time Smoking Status: Never smoker Do You Dip or Chew Tobacco: No Second Hand Exposure: No Tobacco Cessation Education Requested by Patient: No Hx Alcohol Use: No Hx Substance Use: No Review of Systems Review of Systems: Unobtainable due to mental health condition Physical Exam Constitutional: WD/WN, vitals as above well developed and well nourished Eyes: PERRL, conjunctivae normal, anicteric sclerae ENMT: external ear and nose normal, oropharynx normal Neck: trachea midline, no thyromegaly Respiratory: normal respiratory effort, lungs clear to auscultation Cardiovascular: RRR, no murmur, no edema Gastrointestinal (Abdomen): normal bowel sounds, soft, nontender, no hepatosplenomegaly Musculoskeletal: no cyanosis or clubbing, extremities motor strength 5/5 Neurologic: awake Speech / Cognition: + abnormal cognition Psychiatric: Orientation: alert Apperance: appropriately dressed Motor Behavior: no abnormal motor movements Affect: euthymic affect not oriented to time and place. Results & Data Vital Signs (Past 12 Hours) Vital Signs Temp Pulse Pulse Resp BP BP Pulse Ox 10/07/18 11:33 76 17 123/61 100 10/07/18 10:28 36.4 C L 75 20 87/49 L 100
--- NOTE | 2018-10-07 13:42 | Emergency Department Note ---
Entered by Concetta Hernandez acting as a scribe for Jim Webb MD ED Provider Note CHIEF COMPLAINT: Syncope HISTORY OF PRESENT ILLNESS: The patient is an 87 year old female who presents to the Emergency Room with complaints of an episode of syncope starting less than an hour ago. The patients son reports that the patient was sitting in u[place] and began to lose consciousness. He states that the patient was in a sitting position when she lost consciousness and remained in the sitting position. He explains that the patient lives at [facility] and did eat breakfast this morning. He notes that the patient was complaining of abdominal pain when she got to the Emergency Department. He adds that the patient has dementia and is normally confused. The patients son reports that the patient sees Dr. Russo PCP. He states that the patient cannot swallow pills. The patient's son denies that the patient has a headache, fevers, chills, diaphoresis, visual changes, neck pain, chest pain, breathing difficulties, na usea, vomiting, back pain, melena, hematochezia, urinary symptoms, numbness, lymphadenopathy, rash, or other complaints. REVIEW OF SYSTEMS: See HPI for pertinent positives and negatives. A total of ten systems were reviewed and were otherwise negative. PMHx/PSHx: Dementia. SOCIAL HISTORY: Patient lives in a fpc. Former smoker. PHYSICAL EXAM: GENERAL: Awake, alert, pale-appearing, in no distress HENT: Normocephalic, atraumatic. Oropharynx unremarkable. EYES: PERRL. Pale conjunctiva. Sclera non-icteric. NECK: Inspection normal. Non-tender. Supple. No nuchal rigidity. FROM. No masses. RESPIRATORY: Clear to auscultation. No wheezes. No rales. Normal respiratory effort. CARDIAC: Normal rate. Normal rhythm. No murmurs. No rubs. Extremities warm and well perfused. Pulses equal. No JVD. GI: Soft, non-distended. No tenderness to palpation. No rebound or guarding. No masses. RECTAL: Deferred. MUSCULOSKELETAL: Atraumatic. Chest examination reveals no tenderness. The back is symmetrical on inspection without obvious abnormality. There is no CVA tenderness to palpation. No joint edema. LOWER EXTREMITIES: Calves are equal size bilaterally and non-tender. No discoloration. 1+ lower extremity edema. NEURO: Demented sensorium. No sensory or motor deficits noted. SKIN: No rash or jaundice noted. EMERGENCY DEPARTMENT COURSE: 1038: Past medical records reviewed. The patient was evaluated in room B9, and a complete history and physical examination were performed. 1140: I gained consent from the patient for blood in conjunction with the patients son who is in agreement. I typed and crossed the patient for 2 units of blood. I paged the [facility] hospitalist at this time. 1154: I discussed the patient's case with Dr. Barnhart - [facility] Hospitalist at this time. He accepted the patient for further evaluation. MEDICAL DECISION MAKING: Prior records/ancillary studies reviewed. The patient has had progressive anemia over the last 3 years. Nursing notes reviewed and agree them. Additional history obtained from the patient's son. The patient's history was concerning for near syncope. Differential diagnosis: Etiologies such as metabolic, infection, hypo/hyperglycemia, electrolyte abnormalities, cardiac sources, intracerebral event, toxicologic, neurologic, as well as others were entertained. Physical examination: As above. Patient was pale. Initially she was hypotensive per ER treatment provided: IV Lock Packed red blood cell transfusion Saline hydration On reassessment the patient felt better. Diagnostics interpretation by me: ECG: No ischemia The labs revealed significant anemia on CBC with a hemoglobin of 6. The patient's lactate was mildly elevated. Chemistry panel and troponin were unremarkable. Urinalysis pending. Imaging studies: Chest x-ray negative. The patient has a profound anemia. She will need further management in the hospital. The patient was consented with her son present for packed red blood cell transfusion. Consultation: A consultation was placed with the hospitalist. The case was discussed and diagnostics were reviewed. The patient was evaluated in the ER for further treatment. IMPRESSION: Near syncope, Severe anemia. PLAN: Being Evaluated by Hospitalist The scribe's documentation has been prepared under my direction and personally reviewed by me in its entirety. I confirm that the note above accurately reflects all work, treatment, procedures, and medical decision making performed by me. CRITICAL CARE: I have personally spent 30 minutes of critical care time in the direct management of this patient. This includes bedside care, interpretation of diagnostic studies, and testing, discussion with consultants, patient, and family members, and other required patient management activities. This 30 minutes is in excess of all separately billable procedures. Impression & Plan Near syncope, Severe anemia Past Med/Surg History Medical History Dementia Hyperlipidemia Hypertension Iron deficiency anemia due to chronic blood loss Osteoarthritis Surgical History History of appendectomy History of cataract surgery History of colonoscopy History of ovarian cystectomy History of tonsillectomy Social History Preferred Language: Portuguese Smoking Status: Former smoker Results & Data Vital Signs Vital Signs - 24 hr 10/07/18 10:28 10/07/18 11:33 Temperature 36.4 C L Temperature Source Oral Sepsis Recent Fever Within 48 Hours No Sepsis Action Taken by Nursing No Action Required Pulse Rate 75 Pulse Rate [Apical] 76 Pulse Rhythm [Apical] Regular Respiratory Rate 20 17 Respiratory Effort / Characteristics Non-Labored Non-Labored Spontaneous Respiratory Depth Normal Normal Respiratory Pattern Regular Blood Pressure 87/49 L Blood Pressure [Left Arm] 123/61 Blood Pressure Mean 61 Blood Pressure Mean [Left Arm] 81 Pulse Oximetry 100 100 Oxygen Delivery Method Room Air Room Air Home Medications Current Medication List: was personally reviewed by me Laboratory Data Attestation: I reviewed the patient's lab results. Result diagrams: 10/07/18 10:49 10/07/18 10:49 Lab Results 10/07/18 10/07/18 10/07/18 Range/Units 10:49 10:49 10:49 WBC 4.64 L (4.8-10.8) K/uL RBC 3.57 L (4.2-5.4) M/uL Hgb 6.0 L* (12.0-16.0) g/dL Hct 21.9 L (37-47) % MCV 61.3 L (80-100) fL MCH 16.8 L (25-34) pg MCHC 27.4 L (32-36) g/dL RDW Std Deviation 42.4 (36.4-46.3) fL RDW Coeff of Raul 18.7 H (11.5-14.5) % Plt Count 346 (130-400) K/uL MPV 8.3 (7.4-10.4) fL Immature Gran % (Auto) 0.2 % Neut % (Auto) 52.1 % Lymph % (Auto) 31.5 % Broome % (Auto) 13.6 % Eos % (Auto) 1.3 % Baso % (Auto) 1.3 % Reticulocyte % (Auto) 1.1 (0.5-2.0) % Immature Gran # (Auto) 0.01 (0.00-0.02) K/uL Neut # (Auto) 2.42 (1.4-6.5) K/uL Lymph # (Auto) 1.46 (1.2-3.4) K/uL Broome # (Auto) 0.63 H (0.11-0.59) K/uL Eos # (Auto) 0.06 (0-0.5) K/uL Baso # (Auto) 0.06 (0-0.2) K/uL Reticulocyte # 0.04 (0.02-0.10) 10^6/uL Hypochromasia Present Poikilocytosis Present Microcytosis Present Ovalocytes 1+ Sodium 139 (136-145) mmol/L Potassium 4.2 (3.5-5.1) mmol/L Chloride 106 (98-107) mmol/L Carbon Dioxide 26 (21-32) mmol/L Anion Gap 7.0 (3-11) BUN 15 (7-18) mg/dl Creatinine 0.94 (0.6-1.2) mg/dl Est Cr Clr Drug Dosing Not Reportable Est GFR ( Amer) 62.3 Est GFR (Non-Af Amer) 53.8 BUN/Creatinine Ratio 15.9 (10-20) Glucose 105 H (70-99) mg/dl POC Lactic Acid Bowen (0.90-1.70) mmol/L Calcium 8.7 (8.5-10.1) mg/dl Magnesium 2.4 (1.8-2.4) mg/dl Total Bilirubin 0.3 (0.2-1) mg/dl AST 12 L (15-37) U/L ALT 12 (12-78) U/L Alkaline Phosphatase 85 (45-117) U/L Troponin I < 0.015 (0-0.045) ng/ml Total Protein 7.0 (6.4-8.2) gm/dl Albumin 3.3 L (3.4-5.0) gm/dl Globulin 3.7 (2.5-4.0) gm/dl Albumin/Globulin Ratio 0.9 (0.9-2) TSH 3.690 (0.300-4.500) uIu/ml Blood Type Blood Type Recheck Antibody Screen Crossmatch 10/07/18 10/07/18 10/07/18 Range/Units 11:05 11:53 11:53 WBC (4.8-10.8) K/uL RBC (4.2-5.4) M/uL Hgb (12.0-16.0) g/dL Hct (37-47) % MCV (80-100) fL MCH (25-34) pg MCHC (32-36) g/dL RDW Std Deviation (36.4-46.3) fL RDW Coeff of Arul (11.5-14.5) % Plt Count (130-400) K/uL MPV (7.4-10.4) fL Immature Gran % (Auto) % Neut % (Auto) % Lymph % (Auto) % Broome % (Auto) % Eos % (Auto) % Baso % (Auto) % Reticulocyte % (Auto) (0.5-2.0) % Immature Gran # (Auto) (0.00-0.02) K/uL Neut # (Auto) (1.4-6.5) K/uL Lymph # (Auto) (1.2-3.4) K/uL Broome # (Auto) (0.11-0.59) K/uL Eos # (Auto) (0-0.5) K/uL Baso # (Auto) (0-0.2) K/uL Reticulocyte # (0.02-0.10) 10^6/uL Hypochromasia Poikilocytosis Microcytosis Ovalocytes Sodium (136-145) mmol/L Potassium (3.5-5.1) mmol/L Chloride (98-107) mmol/L Carbon Dioxide (21-32) mmol/L Anion Gap (3-11) BUN (7-18) mg/dl Creatinine (0.6-1.2) mg/dl Est Cr Clr Drug Dosing Est GFR ( Amer) Est GFR (Non-Af Amer) BUN/Creatinine Ratio (10-20) Glucose (70-99) mg/dl POC Lactic Acid Bowen 2.05 H (0.90-1.70) mmol/L Calcium (8.5-10.1) mg/dl Magnesium (1.8-2.4) mg/dl Total Bilirubin (0.2-1) mg/dl AST (15-37) U/L ALT (12-78) U/L Alkaline Phosphatase (45-117) U/L Troponin I (0-0.045) ng/ml Total Protein (6.4-8.2) gm/dl Albumin (3.4-5.0) gm/dl Globulin (2.5-4.0) gm/dl Albumin/Globulin Ratio (0.9-2) TSH (0.300-4.500) uIu/ml Blood Type O Positive Blood Type Recheck O Positive Antibody Screen NEGATIVE Crossmatch See Detail Administered Medications Sodium Chloride (Nss 1000ml) 1,000 mls @ 125 mls/hr IV .Q8H SHANNAN Stop: 10/07/18 18:44 Last Infusion: 10/07/18 13:04 Dose: 0 mls/hr Documented by: [id number] Admin: 10/07/18 11:34 Dose: 125 mls/hr Documented by: [id number] Discontinued Medications Sodium Chloride (Nss) 500 mls @ 999 mls/hr IV .Q31M SHANNAN Stop: 10/07/18 11:15 Last Infusion: 10/07/18 11:34 Dose: 0 mls/hr Documented by: [id number] Admin: 10/07/18 10:59 Dose: 999 mls/hr Documented by: [id number] Imaging Data Radiologist's Impression: Radiology results as stated below per my review and the radiologist's interpretation: XR chest 1V portable HISTORY: weakness COMPARISON: Chest 08/04/2017. FINDINGS: The lungs are clear. Cardiac silhouette is normal in size. No pleural effusions. No pneumothorax. IMPRESSION: No acute process. Electronically signed by: Gonzalez Bland M.D. 10/07/2018 10:53 AM ECG Data Attestation: I personally reviewed and interpreted this ECG as follows: Indication: syncope Rate (beats per minute): 77 Rhythm: normal sinus Findings: no PAC, no PVC, no ST depression and no ST elevation Blood Pressure Blood Pressure Findings: Normal blood pressure Blood Pressure Disposition: further management by hospitalist Discharge Plan Visit Data Chief Complaint: Syncope (Near Syncope) Stated Complaint: FAINTED ED Provider: Jim Webb Discharge Problem: Near syncope, Severe anemia Patient Disposition: Being Evaluated by Hospitalist Forms Stand Alone Forms: My [facility] Prescriptions Prescriptions: No Action acetaminophen 500 mg/15 mL Liquid 500 mg PO TID PRN (Reason: pain/fever) RF: 0 Referrals Referrals: Valerio Goldstein [place] [Primary Care Provider] - The scribe's documentation has been prepared under my direction and personally reviewed by me in its entirety. I confirm that the note above accurately reflects all work, treatment, procedures, and medical decision making performed by me.
[2018-10-07] MEDS: PANTOprazole 40 MG TAB PO SCH (21:20)
[2018-10-07 22:02] LABS: Hematocrit (blood only) 28.8 % (37-47); Hemoglobin 8.5 g/dL (12.0-16.0)
[2018-10-08 07:18] LABS: Basophils # (auto) 0.04 K/uL (0-0.2); Basophils % (auto) 0.6 %; Eosinophils # (auto) 0.07 K/uL (0-0.5); Hematocrit (blood only) 29.5 % (37-47); Hemoglobin 8.6 g/dL (12.0-16.0); Immature Granulocytes # (auto) 0.02 K/uL (0.00-0.02); Immature Granulocytes % (auto) 0.3 %; Lymphocytes # (auto) 1.93 K/uL (1.2-3.4); Lymphocytes % (auto) 28.7 %; Mean Corpuscular Hgb Conc 29.2 g/dL (32-36); Mean Corpuscular Volume 70.2 fL (80-100); Mean Platelet Volume 8.6 fL (7.4-10.4); Monocytes % (auto) 11.9 %; Neutrophils # (auto) 3.86 K/uL (1.4-6.5); Neutrophils % (auto) 57.5 %; Platelet Count 325 K/uL (130-400); RDW Coefficient of Variation 26.5 % (11.5-14.5); RDW Standard Deviation 66.2 fL (36.4-46.3); White Blood Count 6.72 K/uL (4.8-10.8)
[2018-10-08 07:45] LABS: Albumin Level 3.2 gm/dl (3.4-5.0); BUN Creatinine Ratio 16.2 (10-20); Calcium 8.4 mg/dl (8.5-10.1); Creatinine Clr Calc Pharmacy 39.4 ml/min; Est GFR (African American) 84.6; Potassium 4.6 mmol/L (3.5-5.1)
[2018-10-08 07:49] LABS: Albumin Globulin Ratio 0.9 (0.9-2); Bilirubin,Total 0.9 mg/dl (0.2-1); Globulin 3.6 gm/dl (2.5-4.0); Total Protein 6.8 gm/dl (6.4-8.2)
[2018-10-08 07:57] LABS: Anisocytosis Present; Hypochromasia Present; Microcytosis Present; Ovalocytes 1+; Poikilocytosis Present
[2018-10-08] MEDS: PANTOprazole 40 MG TAB PO SCH ×2 (09:20→20:31)
--- NOTE | 2018-10-08 14:42 | Consultation Report ---
DATE OF CONSULTATION: 10/08/2018 REASON FOR EVALUATION: Severe iron deficiency anemia. HISTORY OF PRESENT ILLNESS: The patient is an 87-year-old resident of [facility], who for the last month has been much more lethargic and weak and spending most of time in bed as noted by her son when I evaluated her daughter from [place] who was also there. Her son took her to [place] on Monday for [place] and she slumped over in the pew and became somewhat unresponsive and she ended up coming to the hospital where she was found to be profoundly anemic with hemoglobin of 6 with low iron parameters. She was transfused with 2 units of blood and her hemoglobin is now over 8. She is demented and not able to give informed consent, but according to the son, who sees her on a more regular basis, she has had no abdominal pain, nausea, vomiting or visible change in bowels. The last colonoscopy that I can find was in 2011 and there was some diverticulosis seen. The patient is not taking any aspirin or nonsteroidals. There is no known previous history of ulcers or family history of colon cancer. PAST MEDICAL HISTORY: Remarkable for dementia, hyperlipidemia, hypertension, appendectomy, ovarian cystectomy and tonsillectomy. MEDICATIONS: Acetaminophen. ALLERGIES: CEPHALOSPORINS, CYCLOSPORINE, QUININE, CODEINE, PENICILLIN AND SULFA. FAMILY HISTORY: Negative for colon cancer. SOCIAL HISTORY: The patient is a , lives at [facility] [place]. She has advanced dementia. Does not smoke, does not use tobacco. REVIEW OF SYSTEMS: Not reliable given her mental health. PHYSICAL EXAMINATION: GENERAL: The patient is lying in bed, awake and alert, hugging baby, Doncke. History is provided by her son. Her daughter is also in the room. ABDOMEN: Shows a low midline scar. Bowel sounds are normal. There are no masses, tenderness or hepatosplenomegaly. IMPRESSION AND PLAN: The patient has severe iron deficiency anemia. This could be on multiple bases, but iron deficiency anemia in this age group is most likely due to blood loss until proven otherwise. I did have a conversation with the family about how aggressive to be and they did want to proceed with endoscopic evaluation to see if we could find a diagnosis that may be reversible or at least help prognostically. It is much. I plan on scheduling her for an EGD and colonoscopy on Monday, the . This will give us 2 days to try to prep her as I think this might be a challenge given her dementia. We will also need to get phone consent for the procedure and sedation from the son who is the power of deputy attorney general and I plan on contacting him again on Monday with the anesthesiologist for those consents.
--- NOTE | 2018-10-08 22:44 | Hospitalist Progress Note ---
Date of Service October 08, 2018 Assessment & Plan (1) Severe anemia: Presyncope 87 yo female with advanced dementia likely due to severe anemia. Patient is admitted with hemoglobin of 6.0, this improved appropiately with units of PRBC. Paient appears less pale today. Patient has known history of Iron defi. anemia. Consulted GI who willl have patient prepped for scopes on Monday. It appears patient likely has a lower GI bleed. On PPI. Patient on a clear liquid diet today. (2) Dementia: Patient has advanced dementia. Currently requiring a one to one. (3) Near syncope: Due to problem one. Will monitor. DVT: SCD was considered, but patient refusing this. Will have patient ambulate with aid. Spent 25 minutes in management of patient. Subjective Patient does not provide significant history as she has severe dementia. Review of Systems Review of Systems: Unobtainable due to mental health condition Physical Exam Constitutional: WD/WN, vitals as above well developed and well nourished Eyes: PERRL, conjunctivae normal, anicteric sclerae ENMT: external ear and nose normal, oropharynx normal Neck: trachea midline, no thyromegaly Respiratory: normal respiratory effort, lungs clear to auscultation Cardiovascular: RRR, no murmur, no edema Gastrointestinal (Abdomen): normal bowel sounds, soft, nontender, no hepatosplenomegaly Musculoskeletal: no cyanosis or clubbing, extremities motor strength 5/5 Neurologic: awake Speech / Cognition: + abnormal cognition Psychiatric: Orientation: alert Apperance: appropriately dressed Motor Behavior: no abnormal motor movements Affect: euthymic affect Results & Data Vital Signs (Past 12 Hours) Vital Signs Temp Pulse Resp BP Pulse Ox 10/08/18 19:09 36.6 C 80 18 146/82 H 96 10/08/18 15:41 37.7 C H 77 20 138/76 97
[2018-10-09 08:14] LABS: Hematocrit (blood only) 30.6 % (37-47); Hemoglobin 8.9 g/dL (12.0-16.0); Mean Corpuscular Hgb Conc 29.1 g/dL (32-36); Mean Corpuscular Volume 69.9 fL (80-100); Mean Platelet Volume 8.5 fL (7.4-10.4); Platelet Count 307 K/uL (130-400); RDW Coefficient of Variation 26.4 % (11.5-14.5); RDW Standard Deviation 65.7 fL (36.4-46.3); Red Blood Count 4.38 M/uL (4.2-5.4); White Blood Count 5.85 K/uL (4.8-10.8)
[2018-10-09] MEDS: PANTOprazole 40 MG TAB PO SCH ×2 (11:35→21:26)
--- NOTE | 2018-10-09 14:43 | Gastroenterology Progress Note ---
Date of Service October 09, 2018 Assessment & Plan (1) Severe anemia: Fe def anemia---EGD and colonsocopy planned for tomorrow. Subjective cc f/u anemia HPI Pt denies abd pain. Review of Systems Review of Systems: Unobtainable due to cognitive status Physical Exam Respiratory: normal respiratory effort, lungs clear to auscultation Cardiovascular: RRR, no murmur, no edema Gastrointestinal (Abdomen): Inspection/Auscultation: abdomen normal to inspection and normal bowel sounds Percussion/Palpation: abdomen soft Results & Data Vital Signs (Past 12 Hours) Vital Signs Temp Pulse Pulse Pulse Resp BP Pulse Ox 10/09/18 11:36 37.1 C 77 18 152/69 H 98 10/09/18 07:11 56 L 10/09/18 07:06 36.5 C 82 18 126/89 98
[2018-10-09] MEDS: LAVAGE SOLUTION 4000ML PO SCH (16:04)
--- NOTE | 2018-10-09 22:08 | Hospitalist Progress Note ---
Date of Service October 09, 2018 Assessment & Plan (1) Severe anemia: Presyncope 87 yo female with advanced dementia likely due to severe anemia. Patient is admitted with hemoglobin of 6.0, this improved appropiately wit h2 units of PRBC. Hemoglobin has remained stable Patient has known history of Iron defi. anemia. Consulted GI who will have patient prepped for scopes on Monday (10/10). It appears patient likely has a lower GI bleed. On PPI. Patient on a clear liquid diet today. (2) Dementia: Patient has advanced dementia. Currently requiring a one to one. (3) Near syncope: Due to problem one. Will monitor. DVT: SCD was considered, but patient refusing this. Will have patient ambulate with aid. Spent 25 minutes in management of patient. Subjective 81 yo female who is confused. Patient has no new complaints. Review of Systems Review of Systems: Unobtainable due to mental health condition Physical Exam Physical Exam: Constitutional: WD/WN, vitals as above well developed and well nourished Eyes: PERRL, conjunctivae normal, anicteric sclerae ENMT: external ear and nose normal, oropharynx normal Neck: trachea midline, no thyromegaly Respiratory: normal respiratory effort, lungs clear to auscultation Cardiovascular: RRR, no murmur, no edema Gastrointestinal (Abdomen): normal bowel sounds, soft, nontender, no hepatosplenomegaly Musculoskeletal: no cyanosis or clubbing, extremities motor strength 5/5 Neurologic: awake Speech / Cognition: + abnormal cognition Psychiatric: Orientation: alert Appearance: appropriately dressed Motor Behavior: no abnormal motor movements Affect: euthymic affect Results & Data Vital Signs (Past 12 Hours) Vital Signs Temp Pulse Pulse Resp BP Pulse Ox 10/09/18 17:26 84 10/09/18 15:45 36.9 C 64 16 133/66 96 10/09/18 11:36 37.1 C 77 18 152/69 H 98
[2018-10-10 06:26] LABS: Basophils # (auto) 0.05 K/uL (0-0.2); Basophils % (auto) 0.9 %; Eosinophils # (auto) 0.15 K/uL (0-0.5); Eosinophils % (auto) 2.7 %; Hematocrit (blood only) 30.9 % (37-47); Hemoglobin 9.2 g/dL (12.0-16.0); Immature Granulocytes # (auto) 0.01 K/uL (0.00-0.02); Immature Granulocytes % (auto) 0.2 %; Lymphocytes # (auto) 1.95 K/uL (1.2-3.4); Lymphocytes % (auto) 35.1 %; Mean Corpuscular Hgb Conc 29.8 g/dL (32-36); Mean Corpuscular Volume 69.3 fL (80-100); Mean Platelet Volume 8.5 fL (7.4-10.4); Monocytes # (auto) 0.72 K/uL (0.11-0.59); Neutrophils # (auto) 2.67 K/uL (1.4-6.5); Neutrophils % (auto) 48.1 %; Platelet Count 335 K/uL (130-400); RDW Coefficient of Variation 26.5 % (11.5-14.5); Red Blood Count 4.46 M/uL (4.2-5.4); White Blood Count 5.55 K/uL (4.8-10.8)
[2018-10-10 06:40] LABS: Partial Thromboplastin Time 27.6 Seconds (21.0-31.0); Prothrombin Time 10.6 Seconds (9.0-12.0)
[2018-10-10 06:50] LABS: Anisocytosis Present; Hypochromasia Present; Microcytosis Present; Ovalocytes 1+
[2018-10-10 06:58] LABS: Albumin Level 3.2 gm/dl (3.4-5.0); BUN Creatinine Ratio 20.5 (10-20); Calcium 8.5 mg/dl (8.5-10.1); Creatinine Clr Calc Pharmacy 46.4 ml/min; Est GFR (African American) 92.7; Est GFR (Non-African American) 79.9
[2018-10-10 07:01] LABS: Albumin Globulin Ratio 0.9 (0.9-2); Bilirubin,Total 0.6 mg/dl (0.2-1); Globulin 3.5 gm/dl (2.5-4.0); Total Protein 6.7 gm/dl (6.4-8.2)
[2018-10-10] MEDS: LAVAGE SOLUTION 4000ML PO SCH (08:20)
[2018-10-10] MEDS: PANTOprazole 40 MG TAB PO SCH ×2 (08:20→22:16)
--- NOTE | 2018-10-10 17:15 | Progress Note ---
DATE: 10/10/2018 The patient remains pleasantly demented. She has had no obvious source of bleeding since being in the hospital. She has gotten 2 units of blood and her hemoglobin is now 9.2 and stable. The plan was for her to undergo an EGD and colonoscopy today, but unfortunately she has been struggling to get the bowel prep down. She only completed about half the bowel prep and just had a smear of stool, which makes doing a colonoscopy impossible. I talked with her son and the plan is to forego the colonoscopy and bowel prep and just proceed with an EGD tomorrow which will be done by Dr. Romero. As long as her blood count stays up that may be the best we are going to be able to do. Orders have been placed for an EGD tomorrow afternoon.
--- NOTE | 2018-10-10 22:39 | Hospitalist Progress Note ---
Date of Service October 10, 2018 Assessment & Plan (1) Severe anemia: Presyncope 87 yo female with advanced dementia likely due to severe anemia. Patient is admitted with hemoglobin of 6.0, this improved appropiately with 2 units of PRBC. Hemoglobin has remained stable Patient has known history of Iron def. anemia. Colonsocpy is cancelled for today as patient is not taking prep. It appears patient likely has a lower GI bleed. On PPI. (2) Dementia: Patient has advanced dementia. Currently requiring a one to one. (3) Near syncope: Due to problem one. Will monitor. DVT: SCD was considered, but patient refusing this. Will have patient ambulate with aid. Spent 37 minutes in management of patient. This included discussion with family and organizational research consultant Subjective Family was at bedside. Patient reports no new symptoms. Family is updated. Review of Systems Review of Systems: Unobtainable due to mental health condition Physical Exam Physical Exam: Constitutional: WD/WN, vitals as above well developed and well nourished Eyes: PERRL, conjunctivae normal, anicteric sclerae ENMT: external ear and nose normal, oropharynx normal Neck: trachea midline, no thyromegaly Respiratory: normal respiratory effort, lungs clear to auscultation Cardiovascular: RRR, no murmur, no edema Gastrointestinal (Abdomen): normal bowel sounds, soft, nontender, no hepatosplenomegaly Musculoskeletal: no cyanosis or clubbing, extremities motor strength 5/5 Neurologic: awake Speech / Cognition: + abnormal cognition Psychiatric: Orientation: alert Appearance: appropriately dressed Motor Behavior: no abnormal motor movements Affect: euthymic affect Results & Data Vital Signs (Past 12 Hours) Vital Signs Temp Pulse Pulse Resp BP Pulse Ox 10/10/18 19:04 36.9 C 95 H 18 184/86 H 96 10/10/18 16:49 37.1 C 88 20 160/67 H 98 10/10/18 16:00 84 10/10/18 11:51 36.8 C 78 20 148/75 H 99
[2018-10-11] MEDS: PANTOprazole 40 MG TAB PO SCH (07:18)
--- NOTE | 2018-10-11 13:10 | Gastroenterology Progress Note ---
Date of Service October 11, 2018 Assessment & Plan (1) Severe anemia: Fe def anemia---EGD today. Procedure and risks explained to patients son which include but not limited to med reaction, bleeding, perforation, and aspiration. Subjective cc f/u anemia HPI Pt asking why she is being bothered Review of Systems Review of Systems: Unobtainable due to cognitive status Physical Exam Constitutional: WD/WN, vitals as above Respiratory: normal respiratory effort, lungs clear to auscultation Cardiovascular: RRR, no murmur, no edema Gastrointestinal (Abdomen): Inspection/Auscultation: abdomen normal to inspection and normal bowel sounds Percussion/Palpation: abdomen soft Psychiatric: alert but demented Results & Data Vital Signs (Past 12 Hours) Vital Signs Temp Pulse Resp BP Pulse Ox 10/11/18 11:13 36.2 C L 78 20 102/65 98 10/11/18 07:25 36.8 C 78 16 103/57 L 96 10/11/18 04:53 36.4 C L 72 18 121/61 96
--- NOTE | 2018-10-11 13:23 | Anesthesiology Consultation ---
Date of Service October 11, 2018 Assessment & Plan (1) Encounter for pre-operative examination: Chart Review Chart Review: Acceptable Risk for Surgery and Patient NOT seen in Pre Admission Testing Consults Requested none History Surgery Operation Date: 10/11/18 08:00 Proposed Procedures p Esophagogastroduodenoscopy Dr Romero - Emre Romero Height/Weight Height: 5 ft 1 in Weight: 48 kg Allergies Allergy/AdvReac Type Severity Reaction Status Date / Time Cephalosporins Allergy Mild UNKNOWN Verified 10/07/18 11:32 cyclosporine Allergy Mild UNKNOWN Verified 10/07/18 11:32 quinine Allergy Mild UNKNOWN Verified 10/07/18 11:32 codeine Allergy Unknown RASH Verified 10/07/18 11:32 Penicillins Allergy Unknown Verified 10/07/18 11:32 Sulfa (Sulfonamide Allergy Unknown Verified 10/07/18 11:32 Antibiotics) Medications Home Medications Medication Instructions Recorded Confirmed Last Taken acetaminophen 500 mg PO TID PRN 10/07/18 10/07/18 Unknown Active Medications Generic Name Dose Route Start Last Admin Trade Name Freq PRN Reason Stop Dose Admin Pantoprazole Sodium 40 mg 10/07/18 21:00 10/11/18 07:18 Protonix PO 11/06/18 20:59 Not Given BID SHANNAN Past Medical History Medical History Dementia Hyperlipidemia Hypertension Iron deficiency anemia due to chronic blood loss Osteoarthritis Past Family History Family History Mother , Age 77 No problems noted. Past Surgical History Surgical History History of appendectomy History of cataract surgery History of colonoscopy History of ovarian cystectomy History of tonsillectomy Past Anesthesia History No Hx of Anesthesia Complications and No Family Hx of Anesthesia Complications History of PONV No Motion Sickness Screening History of Motion Sickness: No Social History Smoking Status: Never smoker Do You Dip or Chew Tobacco: No Hx Alcohol Use: No Hx Substance Use: No substance use type: does not use Exercise / Class Metabolic Activity II 4-5 Yardwork/Stairs/Walk up hill Physical Exam Vital Signs Last Vital Signs Temp 36.1 C L 10/11/18 13:19 Pulse 76 10/11/18 13:19 Resp 18 10/11/18 13:19 BP 113/69 10/11/18 13:19 Pulse Ox 97 10/11/18 13:19 Testing Electrocardiogram Date: 10/07/18 Findings: + NSR @ (82) Poor data quality, interpretation may be adversely affected Normal sinus rhythm Normal ECG When compared with ECG of 07-OCT-2018 11:32, (unconfirmed) No significant change was found Confirmed by Jaspal Thomas ([id number]) on 10/08/2018 3:22:12 PM Chest X-Ray Date: 10/07/18 XR chest 1V portable HISTORY: weakness COMPARISON: Chest 08/04/2017. FINDINGS: The lungs are clear. Cardiac silhouette is normal in size. No pleural effusions. No pneumothorax. IMPRESSION: No acute process. Laboratory Results 10/10/18 06:03 10/10/18 06:03 Blood Type O Positive 10/07/18 11:53 Antibody Screen NEGATIVE 10/07/18 11:53 PT 10.6 Seconds (9.0-12.0) 10/10/18 06:03 INR 1.0 (0.9-1.1) 10/10/18 06:03 APTT 27.6 Seconds (21.0-31.0) 10/10/18 06:03 10/07/18 10:49 Blood Culture - Preliminary Blood No growth to date. 10/07/18 11:14 Blood Culture - Preliminary Blood No growth to date.
[2018-10-11] MEDS ORDERED: LIDOCAINE HCL 2% 2 ML VIAL/AMP(20MG/ML) INFIL ONE (13:56)
[2018-10-11] MEDS ORDERED: PROPOFOL IV EMULSION 10 MG/ML 20 ML VIAL IV ONE (13:56)
--- NOTE | 2018-10-11 14:01 | GI REPORT ---
Patient Name: Carolina Jones Procedure Date: 10/11/2018 1:31 PM Date of : 1930 Admit Type: Inpatient Age: 87 Gender: Female Attending MD: Emre Romero MD Procedure: Upper GI endoscopy Providers: Emre Romero MD Referring MD: Mike Barnhart M.d. Indications: Iron deficiency anemia Medicines: Monitored Anesthesia Care Complications: No immediate complications. Estimated blood loss: Minimal. Estimated Blood Loss: Estimated blood loss was minimal. Procedure: Pre-Anesthesia Assessment: - The risks and benefits of the procedure and the sedation options and risks were discussed with the patient. All questions were answered and informed consent was obtained. - Patient identification and proposed procedure were verified prior to the procedure by the physician, the nurse and the rigging and controls aircraft mechanic. The procedure was verified in the procedure room. - Procedure and risks explained to patients son Jose which include but not limited to medication reaction, bleeding, perforation, aspiration , and missed lesions. Judicious gas insufflation was used and gas removal done on the way out. The lumen was always visualized when advancing the scope. Prep was good. Washes and suctioning used as needed to get good visualization of the mucosa. Retroflexion to look at the fundus and cardia of the stomach and GE junction was done. After obtaining informed consent, the endoscope was passed under direct vision. Throughout the procedure, the patient's blood pressure, pulse, and oxygen saturations were monitored continuously. The Endoscope was introduced through the mouth, and advanced to the third part of duodenum. The upper GI endoscopy was accomplished without difficulty. The patient tolerated the procedure well. Findings: The Z-line was regular and was found 37 cm from the incisors. A 3 cm hiatal hernia was present. A single 5 mm no bleeding angiodysplastic lesion was found in the gastric body. Coagulation for bleeding prevention using argon plasma at 0.8 liters/minute and 30 meng was successful. Estimated blood loss was minimal. The examined duodenum was normal. The exam was otherwise without abnormality. Impression: - Z-line regular, 37 cm from the incisors. - 3 cm hiatal hernia. - A single non-bleeding angiodysplastic lesion in the stomach. Treated with argon plasma coagulation (APC). - Normal examined duodenum. - The examination was otherwise normal. - No specimens collected. Recommendation: - Return patient to [facility]. - PPI for 6 weeks to heal ulceration which is caused by APC. Solid diet. Emre Romero M.D. Emre Romero MD 10/11/2018 2:01:24 PM This report has been signed electronically. Note Initiated On: 10/11/2018 1:31 PM Number of Addenda: 0 I attest to the content of the Intraoperative Record and orders documented therein, exceptions below {[id number]}
--- NOTE | 2018-10-11 14:08 | Anesthesiology Progress Note ---
Date of Service October 11, 2018 Anesthesia Post Procedure Vital Signs Vital Signs: Temp Pulse Pulse Resp BP Pulse Ox 10/11/18 14:00 36.0 C L 74 18 119/64 99 10/11/18 13:19 36.1 C L 76 18 113/69 97 10/11/18 11:13 36.2 C L 78 20 102/65 98 10/11/18 07:25 36.8 C 78 16 103/57 L 96 10/11/18 04:53 36.4 C L 72 18 121/61 96 10/11/18 00:31 77 10/10/18 22:51 36.4 C L 86 18 156/52 H 96 10/10/18 19:04 36.9 C 95 H 18 184/86 H 96 10/10/18 16:49 37.1 C 88 20 160/67 H 98 10/10/18 16:00 84 Notes Mental Status: alert / awake / arousable and participated in evaluation Patient Amnestic to Procedure: Yes Nausea / Vomiting: adequately controlled Pain: adequately controlled Airway Patency, RR, SpO2: stable & adequate BP & HR: stable & adequate Hydration State: stable & adequate Anesthetic Complications: no major complications apparent and Pt Satisfied with anesthetic care
--- NOTE | 2018-10-11 14:09 | Post Operative Brief Note ---
Immediate Post Op Note v1 Date of Surgery October 11, 2018 Pre & Post Diagnosis Operation Date: 10/11/18 08:00 Pre-Op Diagnosis: SEVERE ANEMIA Post-Op Diagnosis: HIATAL HERNIA, GASTRIC AVM Procedure Operation Date: 10/11/18 08:00 Actual Procedures p EGD Hemostasis - Emre Romero See EGD report. AVM noted not actively bleeding but cauterized because these can cause slow bleeds. Recommend PPI for 6 weeks to heal ulcer which is caused by cautery. Discussed with son Jose who also asked about laxative for constipation and I recommend miralax 34 gm po bid. Will sign off. Please call for further questions. Surgeon Emre Romero Engine Oiler n/a Estimated Blood Loss 0 Findings Consistent with Post-Op Diagnosis
[2018-10-11] MEDS ORDERED: POLYETHYLENE (MIRALAX) 17 GM PACK PO SCH (21:00)
--- NOTE | 2018-10-17 08:30 | Discharge Summary ---
Date of Service October 11, 2018 Admission HPI Per Admitting Provider 87 yo female with no significant medical history except for advanced dementia. Patient is a poor historian and most of the history was obtained by her son via phone. Her son states that the patient is a resident of [facility]. She was her normal self this morning when Jose her son picked her up at [facility]. But at [facility], while she was sitting during the sermon. Her son noticed that her head went down but she was arousable. He had to get a wheelchair to get her to the car. Normally she ambulated with no issues. In the car, she was leaning forward with her head down, but she did not lose consciousness. Patient' son states that he could not provide more history as she is now a resident at [facility]. Called [facility], they stated she was her normal self but did have abdominal pain on , but this subsided Monday. As patient toilets herself, they cannot provide any history of her stools. Principal Diagnosis Severe anemia likely from upper GI blood loss Discharge Exam Constitutional WD/WN, vitals as above well developed and well nourished Eyes PERRL, conjunctivae normal, anicteric sclerae ENMT external ear and nose normal, oropharynx normal Neck trachea midline, no thyromegaly Respiratory normal respiratory effort, lungs clear to auscultation Cardiovascular RRR, no murmur, no edema Gastrointestinal (Abdomen) normal bowel sounds, soft, nontender, no hepatosplenomegaly Musculoskeletal no cyanosis or clubbing, extremities motor strength 5/5 Neurologic awake Speech / Cognition: + abnormal cognition Psychiatric Orientation: alert Apperance: appropriately dressed Motor Behavior: no abnormal motor movements Affect: euthymic affect Discharge Data Allergies Allergy/AdvReac Type Severity Reaction Status Date / Time Cephalosporins Allergy Mild UNKNOWN Verified 10/07/18 11:32 cyclosporine Allergy Mild UNKNOWN Verified 10/07/18 11:32 quinine Allergy Mild UNKNOWN Verified 10/07/18 11:32 codeine Allergy Unknown RASH Verified 10/07/18 11:32 Penicillins Allergy Unknown Verified 10/07/18 11:32 Sulfa (Sulfonamide Allergy Unknown Verified 10/07/18 11:32 Antibiotics) Consultations 10/07/18 11:57 ED Decision to Admit Stat 10/07/18 14:44 Consult Gastroenterology Routine Procedures Performed Operation Date: 10/11/18 08:00 Actual Procedures p EGD Hemostasis - Emre Cuevas [facility] Course (1) Severe anemia: Presyncope 87 yo female with advanced dementia likely due to severe anemia. Patient is admitted with hemoglobin of 6.0, this improved appropiately with 2 units of PRBC. Hemoglobin has remained stable Patient has known history of Iron def. anemia. Colonosocpy was cancelled as patient is not taking prep. Upper endoscopy showed the following - A single non-bleeding angiodysplastic lesion in the stomach. Treated with argon plasma coagulation (APC). - Normal examined duodenum. - The examination was otherwise normal. - No specimens collected. Recommendation: - Return patient to [facility] care. - PPI for 6 weeks to heal ulceration which is caused by AVM. Solid diet. On PPI. (2) Dementia: Patient has advanced dementia. Currently requiring a one to one. (3) Near syncope: Due to problem one. Will monitor. DVT: SCD was considered, but patient refusing this. Will have patient ambulate with aid. Total Time Total Time Spent Total Time Spent (In Minutes): 32 Total Time Includes: Examination of the Patient, Discharge Planning, Medication Reconciliation and Communication With Other Providers Discharge Plan Discharge Items Patient Disposition: [facility] Reason For Visit: SEVERE ANEMIA Discharge Diagnosis: Severe Anemia Discharge Goals: Decrease discomfort Activity: Resume your previous activity Non-emergency contact: Primary Care Provider Call non-emergency contact if: you have any medication questions Follow-up/Referrals: Valerio Goldstein [place] [Primary Care Provider] - Diet: Regular Addtl Provider Instructions: You were seen for a GI bleed. You will be discharge on a Proton pump inhibitor. You will f/u with PCP in 1-2 weeks May followup with GI in 4-6 weeks. Prescriptions: New pantoprazole 40 mg Tablet,Delayed Release (Dr/Ec) 40 mg PO BID Qty: 0 RF: 0 ferrous sulfate 325 mg (65 mg iron) tablet 325 mg PO DAILY Qty: 30 RF: 0 Continued acetaminophen 500 mg/15 mL Liquid 500 mg PO TID PRN (Reason: pain/fever) RF: 0 Stand-Alone Forms: [facility] Discharge Orders: Discharge Order (Routine); Ordered 10/11/18 Ordered By: Mike Barnhart Skilled Items Patient informed of condition?: Yes DNR: Yes Discharge Level of Care: Skilled Communicable Disease: No Discharge Prognosis: Stable Admission Data Admit Date/Time: 10/07/18 12:48 Attending Provider: Mike Barnhart Admit Provider: Mike Barnhart Primary Care Provider: Valerio Goldstein [place] Other Providers: Mike Barnhart ; Michel Mckeon Service: Telemetry Medical Other Interventions: Discharge Summary Assessment (RN) Last Done: 10/11/18 16:22 DC Date/Time DO NOT enter until pt leaves facility: 10/11/18 17:35
== END 2018-10-11 17:35 | DRG 812 ==
LOC: ED 10:22 → 2N 12:48